=== PATIENT | female | born 1985 | race Hispanic/Latino ===

== ENCOUNTER 2017-02-26 09:55 | Emergency (ER) | payer OTHER ==
--- NOTE | 2017-02-26 11:39 | OBDCSUM ---
Datetime: 02/26/2017 11:15 Discharged to, Provider: Home Follow up at, Provider: Dr Stockton Disch Instr Activity: Normal activity Disch Instr Diet: Regular Discharge Diagnosis, Provider: Antepartum Bleeding Discharge Time: 02/26/2017 11:15 Follow up in weeks, Provider: 02/27/17 Disch Referrals: None Contraception discussed, Prov: No
--- NOTE | 2017-02-26 11:39 | OBHP ---
Datetime: 02/26/2017 11:25 IP Adm Impression: Term, intrauterine IP Admit Plan: Discharge home Admit Comment, IP Provider: 31 yo G1 at 39+6 wks w/ EDC 02/27/2017 c/o mucus w/ brown d/c at 8am, de nies ctxns, LOF, and reports FM. 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 FHT reactive. PT discharged home and will return tmorrow night for scheduled induction of labor. Extremities - PN: Normal Abdomen - PN: Normal General - PN: Normal FHR - Baseline A Provider: 140's Membranes, Provider: Intact Contraction Comments Provider: irregular EGA AdmitDate IP: 39.6 Vital Signs Provider: Reviewed IP Chief Complaint: Vaginal bleeding NICHD Variability Prov Fetus A: Moderate 6-25bpm NICHD Accel Fetus A IP Provider: [id number] FHR Category Provider Fetus A: Category I NICHD Decel Fetus A IP Provider: None Dilatation, Provider: 1 Effacement, Provider: 0 Station, Provider: -3
[2017-02-26 15:48] VITALS: BP 121/77; PULSE 85; O2SAT 96
== END 2017-02-26 11:15 | disposition home or self-care (01) ==
LOC: H.EROB2 09:55
DX: O26.893 Other specified pregnancy related conditions, third trimester (principal); Z3A.39 39 weeks gestation of pregnancy

== ENCOUNTER 2017-02-27 18:43 | Inpatient (IN) | payer OTHER ==
[2017-02-27 19:24] VITALS: BMI 31.0
[2017-02-27] MEDS ORDERED: Lactated Ringer's 1,000 ML IV SCH (19:27)
[2017-02-27 20:28] LABS: BASO % 0.1 % (0.0-2.0); EOS # 0.1 K/uL (0.0-0.7); EOS % 0.7 % (0.0-4.0); HEMOGLOBIN 9.2 g/dL (12.0-16.0); LYMPH # 1.9 K/uL (1.0-4.3); LYMPH % 14.8 % (20.0-40.0); MEAN CELL VOLUME 79.3 fl (81.0-99.0); MEAN CORPUSCULAR HEMOGLOBIN 25.7 pg (27.0-31.0); MEAN CORPUSCULAR HGB CONC 32.4 g/dL (33.0-37.0); MEAN PLATELET VOLUME 10.2 fl (7.2-11.7); MONO % 7.4 % (0.0-10.0); NRBC % 0.1 % (0.0-0.0); RBC 3.59 Mil/uL (3.80-5.20); RED CELL DISTRIBUTION WIDTH 15.4 % (11.5-14.5)
[2017-02-27 21:07] LABS: ALBUMIN 3.5 g/dL (3.5-5.0); ALT/SGPT 66 U/L (9-52); AST/SGOT 48 U/L (14-36); BLOOD UREA NITROGEN 11 mg/dl (7-17); CALCIUM 8.8 mg/dL (8.4-10.2); GFR AFRICAN-AMERICAN > 60; GFR NON-AFRICAN AMERICAN > 60
[2017-02-28] MEDS: Lactated Ringer's 1,000 ML IV SCH ×2 (00:20→11:20)
[2017-02-28] MEDS ORDERED: Fentanyl/Bupivacaine HCl 250 ML EPI ONE (00:52)
[2017-02-28] MEDS ORDERED: Bupivacaine HCl 0.25% PF (10 ml) Inj ONE ×2 (00:53→06:45)
--- NOTE | 2017-02-28 01:10 | HP ---
HISTORY OF PRESENT ILLNESS: This is a 31-year-old G1 at 40 weeks and 1 day with an EDC of 02/26/2017, by 9 week ultrasound, who presents for an induction of labor for postdates. The patient reports that she feels contractions sometimes. Denies vaginal bleeding, leaking of fluid and reports positive movement. The patient had a care with [facility] with Dr. Crissy Stockton. This is complicated by the fact that the patient has chronic hepatitis B. 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 PAST MEDICAL HISTORY: Chronic hepatitis B from . PAST SURGICAL HISTORY: None. MEDICATIONS: None. ALLERGIES: NO KNOWN DRUG ALLERGIES. FAMILY HISTORY: Mother with hepatitis B. SOCIAL HISTORY: The patient denies tobacco, alcohol, or illicit drug use. 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 She denies any STDs and has an abnormal Pap as above.\ LABORATORY DATA: Urine culture negative. Gonorrhea and Chlamydia negative. RPR nonreactive. Rubella IgG positive. Hepatitis B surface antigen positive. Hepatitis B core antibody IgM positive and hepatitis B core antibody total is positive. On 10/13/2016, AFP was negative. On 01/26/2017, HIV was nonreactive. RPR was nonreactive. On 01/26/2017, her AST was elevated at 63 and ALT was 90 which is elevated. On 02/04/2017, her AST was 47, her ALT was 72. Hemoglobin electrophoresis was normal. Blood type A positive. Antibody screen negative. Glucose was declined. On 02/02/2017, group B Strep was negative PHYSICAL EXAMINATION GENERAL: The patient appears comfortable. Lying in bed. VITAL SIGNS: Afebrile. Vital signs stable. ABDOMEN: Soft, nontender, gravid. EXTREMITIES: Nontender. VAGINAL: 1 cm long and -3 at 7:38 p.m. today. heart tracing. External monitoring baseline is in the 120s, with moderate variability and positive accelerations. Tocodynamometer: irregular contractions. ASSESSMENT AND PLAN: This is a 31-year-old G1 at 40 weeks and 1 day, for induction of labor for postdates. GBS is negative. heart tracing is0 reassuring. Will start induction with Cervidil. Sandra Martinez MD [facility] # [id number] [place]
[2017-02-28] MEDS ORDERED: Lidocaine 1% Inj (20ml) ONE (05:32)
[2017-02-28] MEDS ORDERED: Oxytocin 30 units/LR 500ML 30 U/500 ML BAG IV ONE (07:39)
[2017-02-28] MEDS: Oxytocin 30 units/LR 500ML 30 U/500 ML BAG IV SCH ×4 (07:40→11:07)
[2017-02-28] MEDS ORDERED: Oxycodone/Acetaminophen 5/325 mg Tab PO PRN ×2 (08:06→15:51)
[2017-02-28] MEDS ORDERED: Benzocaine/Menthol SPRAY TOP PRN ×2 (08:06→15:51)
--- NOTE | 2017-02-28 08:14 | OBDS ---
DELIVERY PERSONNEL Delivery Doctor: Onelia Matrinez MD MATERNAL INFORMATION Provider Comments: Pt progressed to complete and pushed to deliver a viable female through cl ear fluid at 07:37 am. Apgars 9 and 9. Wt 8#15.7, 4075 gms. Baby placed on mother's abdomen. Mout h and and nares bulb-suctioned. Cord clamped and cut. Cord blood collected. Placenta deliverd spot aneously intact w/ 3vc. Pt and baby tolerated the procedure well. EBL 200mL LABOR SUMMARY EDC: 02/27/2017 00:00 LABOR INFORMATION Cervical Ripening Agents: Cervidil MEMBRANES Membranes Rupture Method: Spontaneous Amniotic Fluid Color: Clear Amniotic Fluid Amount: Moderate VAGINAL DELIVERY Laceration Repair Note: Second degree tear repaired w/ 2-0 rapide and 3-0v. 1 % lidocaine injected into perineum in the middle of repair. IDENTIFICATION/MEDS BABY A ID Band Number: [id number]
[2017-03-01 06:38] LABS: HEMOGLOBIN 8.1 g/dL (12.0-16.0); MEAN CELL VOLUME 79.9 fl (81.0-99.0); MEAN CORPUSCULAR HEMOGLOBIN 25.6 pg (27.0-31.0); MEAN CORPUSCULAR HGB CONC 32.1 g/dL (33.0-37.0); RBC 3.16 Mil/uL (3.80-5.20); RED CELL DISTRIBUTION WIDTH 15.3 % (11.5-14.5); WHITE BLOOD COUNT 15.2 K/uL (4.8-10.8)
--- NOTE | 2017-03-01 09:54 | OBPPN ---
Datetime: 03/01/2017 09:36 PP Pain Prov: Within normal limits PP Nausea Prov: Denies PP Flatus Prov: Yes PP BM Prov: Yes PP Breasts Prov: Normal PP Heart Prov: Normal PP Lungs Prov: Normal PP Abdomen/Uterus Prov: Normal PP Lochia Prov: Normal PP Vulva/Perineum Prov: Normal PP CVA Tenderness Prov: Normal PP Extremities Prov: Normal PP Progress Prov: Not Applicable PP Impression Prov: Normal progression PP Plan Prov: Continue present management PP Progress Note Prov: A: S/P day 1 Anemia (hb 8 starting 9) - Asymptomatic PLAN: Discharge in AM Vital Signs Provider PP: Reviewed; Within Normal Limits
--- NOTE | 2017-03-02 11:11 | OBPPN ---
Datetime: 03/02/2017 11:08 PP Pain Prov: Within normal limits PP Nausea Prov: Denies PP Flatus Prov: Yes PP Breasts Prov: Not Done PP Heart Prov: Normal PP Lungs Prov: Normal PP Abdomen/Uterus Prov: Normal PP Lochia Prov: Not Done PP Vulva/Perineum Prov: Not Done PP CVA Tenderness Prov: Normal PP Extremities Prov: Normal PP Progress Prov: Normal PP Impression Prov: Normal progression PP Plan Prov: Discharge PP Progress Note Prov: Patient will be ambulating tolerating diet and pain well controlled reports m inimal lochia 40 without difficulty Vital signs stable afebrile Uterus firm below the umbilicus Extremities no Homans day #2 Discharged home, Motrin as needed, follow up with Dr. Brenner in 6 weeks Vital Signs Provider PP: Reviewed
--- NOTE | 2017-03-02 11:11 | OBDCSUM ---
Datetime: 03/02/2017 10:17 Discharged to, Provider: Home Follow up at, Provider: OB Disch Instr Activity: Normal activity; May be up to bathroom; May be up for meals; May Shower Disch Instr Diet: Regular Discharge Instructions, Provider: Routine instructions given Discharge Diagnosis, Provider: Term Delivered Discharge Time: 03/02/2017 10:17 Follow up in weeks, Provider: 6 weeks Disch Referrals: None Contraception discussed, Prov: Yes Disch Activity Restrictions: Minimize stair-climbing; No sexual activity; Nothing in vagina - Interc ourse, tampons, douche Discharge Comment, Provider: Doing well Contraception after Delivery: Undecided
[2017-03-02 16:39] VITALS: BP 137/89; PULSE 85; RESP 20; TEMP 98.2; O2SAT 99
== END 2017-03-02 11:35 | disposition home or self-care (01) | DRG 372 ==
LOC: H.EROB2 18:43 → H.L&D 19:28 → H.OB/GYN 02-28 12:14
PROVIDERS: ADMIT Obstetrics & Gynecology; ATTEND Obstetrics & Gynecology
PROC: 4A1HXCZ Monitoring of Products of Conception, Cardiac Rate, External Approach (ICD-10-PCS; 2017-02-27)
PROC: 10E0XZZ Delivery of Products of Conception, External Approach (ICD-10-PCS; principal; 2017-02-28)
PROC: 0KQM0ZZ Repair Perineum Muscle, Open Approach (ICD-10-PCS; 2017-02-28)
DX: O48.0 Post-term pregnancy (principal); O98.42 Viral hepatitis complicating childbirth; O99.02 Anemia complicating childbirth; B18.1 Chronic viral hepatitis B without delta-agent; Z37.0 Single live birth; Z3A.40 40 weeks gestation of pregnancy; D64.9 Anemia, unspecified; O70.1 Second degree perineal laceration during delivery